=== PATIENT | male | born 1935 | race Caucasian/White ===

== ENCOUNTER 2021-06-14 07:26 | Inpatient (IN) | payer BC, MEDICAID, SELFPAY ==
[~2021-06-14] VITALS: Ht 167.6 cm; Wt 117.0 kg
[2021-06-14 07:26] VITALS: BP_SYST 130
[2021-06-14 08:50] LABS: BASOPHILS % (AUTO) 0.3 % (0.0-2.0); EOSINOPHILS % (AUTO) 0.2 % (0.0-4.0); HEMATOCRIT 34.6 % (36-54); HEMOGLOBIN 10.6 g/dL (14.0-18.0); LYMPHOCYTES # (AUTO) 0.1 K/uL (1.0-5.5); LYMPHOCYTES % (AUTO) 2.9 % (20.5-51.5); MEAN CORPUSCULAR HEMOGLOBIN 23 pg (27-31); MEAN CORPUSCULAR HGB CONC 31 % (32-36); MEAN CORPUSCULAR VOLUME 74 fL (79.0-98.0); MONOCYTES % (AUTO) 0.6 % (1.7-9.3); NEUTROPHILS # (AUTO) 4.1 K/uL (1.8-7.7); PLATELET COUNT (AUTO) 179 K/uL (130-430); RED BLOOD CELL COUNT(AUTO) 4.66 MIL/uL (4.2-6.2); RED CELL DISTRIBUTION WIDTH 20.3 % (9.0-15.0); WHITE BLOOD COUNT (AUTO) 4.2 K/uL (4.8-10.8)
[2021-06-14 09:44] LABS: ANION GAP 12 (5-15); CALCIUM 8.6 mg/dL (8.4-11.0); CHLORIDE 109 mmol/L (98-107); CREATININE 1.17 mg/dL (0.55-1.30); GLUCOSE 85 mg/dL (70-99); POTASSIUM 4.2 mmol/L (3.5-5.1); SODIUM SERUM 143 mmol/L (136-145); UREA NITROGEN, BLOOD 22 mg/dL (8-21)
[2021-06-14 09:49] LABS: ALANINE AMINOTRANSFERASE 23 U/L (12-78); ALBUMIN 3.3 g/dL (3.4-4.8); ASPARTATE AMINOTRANSFERASE 34 U/L (10-37)
[2021-06-14 09:50] LABS: C-REACTIVE PROTEIN QUANT < 0.2 mg/dL (0-0.5)
[2021-06-14] MEDS ORDERED: DILTIAZEM HCL 60 MG TABLET PO ONE (10:00)
[2021-06-14] MEDS ORDERED: DILTIAZEM HCL 25 MG/5 ML VIAL IVP ONE (10:00)
[2021-06-14 10:17] LABS: INR 1.3 (0.80-1.20); PROTHROMBIN TIME 13.8 SECS (9.5-12.5)
[2021-06-14] MEDS ORDERED: IOHEXOL 350 mgI/mL, 150 ML INFUS..BTL IV ONE (11:10)
[2021-06-14 14:41] VITALS: BP_SYST 120
[2021-06-14] MEDS ORDERED: IPRATROPIUM BROM 0.5 MG/2.5 ML VIAL.NEB (ATROVENT) INH PRN (16:00)
[2021-06-14] MEDS ORDERED: ALBUTEROL SULFATE 0.083% 2.5 MG/3 ML VIAL.NEB INH PRN (16:00)
[2021-06-14] MEDS ORDERED: COMMUNICATION ORDER XX ONE (16:30)
[2021-06-14 16:49] VITALS: BP_SYST 120
[2021-06-14 17:50] VITALS: BP_SYST 120
[2021-06-14] MEDS: ALBUTEROL SULFATE 0.083% 2.5 MG/3 ML VIAL.NEB INH SCH ×2 (19:28→23:11)
[2021-06-14] MEDS: IPRATROPIUM BROM 0.5 MG/2.5 ML VIAL.NEB (ATROVENT) INH SCH ×2 (19:29→23:11)
[2021-06-14] MEDS ORDERED: cefTRIAXone 1 GM IVPB PREMIX 50 ML IV SCH (20:00)
[2021-06-14 20:18] VITALS: BP_SYST 114
[2021-06-14] MEDS: ZOLPIDEM TARTRATE 5 MG TABLET PO SCH (21:48)
[2021-06-14] MEDS: CARVEDILOL 6.25 MG TABLET (COREG) PO SCH (21:48)
[2021-06-14] MEDS: APIXABAN 2.5 MG TABLET PO SCH (21:49)
[2021-06-14] MEDS: AZITHROMYCIN 500 MG in NS 250 ML IV SCH (21:50)
[2021-06-15] VITALS (7 sets, daily range): BP systolic 104–118
[2021-06-15] MEDS: ALBUTEROL SULFATE 0.083% 2.5 MG/3 ML VIAL.NEB INH SCH ×6 (03:00→23:00)
[2021-06-15] MEDS: IPRATROPIUM BROM 0.5 MG/2.5 ML VIAL.NEB (ATROVENT) INH SCH ×6 (03:00→23:00)
[2021-06-15 07:27] LABS: HEMATOCRIT 30.2 % (36-54); HEMOGLOBIN 9.2 g/dL (14.0-18.0); MEAN CORPUSCULAR HEMOGLOBIN 23 pg (27-31); MEAN CORPUSCULAR HGB CONC 31 % (32-36); MEAN CORPUSCULAR VOLUME 74 fL (79.0-98.0); PLATELET COUNT (AUTO) 142 K/uL (130-430); RED BLOOD CELL COUNT(AUTO) 4.09 MIL/uL (4.2-6.2); RED CELL DISTRIBUTION WIDTH 20.6 % (9.0-15.0); WHITE BLOOD COUNT (AUTO) 22.2 K/uL (4.8-10.8)
[2021-06-15] MEDS: CARVEDILOL 6.25 MG TABLET (COREG) PO SCH (08:04)
[2021-06-15] MEDS: LOSARTAN POTASSIUM 50 MG TABLET (COZAAR) PO SCH (08:05)
[2021-06-15] MEDS: APIXABAN 2.5 MG TABLET PO SCH ×2 (08:05→20:32)
[2021-06-15 08:20] LABS: ALANINE AMINOTRANSFERASE 26 U/L (12-78); ALBUMIN 2.8 g/dL (3.4-4.8); ANION GAP 10 (5-15); ASPARTATE AMINOTRANSFERASE 35 U/L (10-37); CALCIUM 9.5 mg/dL (8.4-11.0); CHLORIDE 106 mmol/L (98-107); CREATININE 1.12 mg/dL (0.55-1.30); GLUCOSE 82 mg/dL (70-99); POTASSIUM 3.6 mmol/L (3.5-5.1); SODIUM SERUM 139 mmol/L (136-145); THYROID STIMULATING HORMONE 1.73 uIu/mL (0.36-3.74); TOTAL BILIRUBIN 0.9 mg/dL (0.0-1.0); UREA NITROGEN, BLOOD 33 mg/dL (8-21)
[2021-06-15] MEDS: LEVOTHYROXINE SODIUM 0.075 MG TABLET PO SCH (10:57)
[2021-06-15] MEDS: ATORVASTATIN 10 MG TABLET PO SCH (10:57)
[2021-06-15] MEDS: CARVEDILOL 25 MG TABLET (COREG) PO SCH ×2 (10:58→20:31)
[2021-06-15] MEDS: TIMOLOL MALEATE 0.25% OPHTHALMIC DROPS 5 ML OP SCH ×2 (10:59→20:30)
[2021-06-15 11:23] LABS: CHOLESTEROL 81 mg/dL (<200); HDL CHOLESTEROL 45 mg/dL (>45); LDL CHOLESTEROL 34 mg/dL (<100); TRIGLYCERIDES 45 mg/dL (30-150)
[2021-06-15 14:45] LABS: BAND % (MANUAL) 19 % (0-6); BASOPHILS % (MANUAL) 0 % (0-2); EOSINOPHILS % (MANUAL) 0 % (0-7); LYMPHOCYTES % (MANUAL) 4 % (20-46); METAMYELOCYTES % 2 % (0-0); MONOCYTES % (MANUAL) 8 % (0-11)
[2021-06-15] MEDS ORDERED: SACU1TAB PO (17:26)
[2021-06-15] MEDS ORDERED: EPLE25TA10 PO (17:26)
[2021-06-15] MEDS: LATANOPROST 2.5 ML DROPS (XALATAN) OP SCH (17:35)
[2021-06-15] MEDS: AZITHROMYCIN 500 MG in NS 250 ML IV SCH (20:27)
[2021-06-15] MEDS: ZOLPIDEM TARTRATE 5 MG TABLET PO SCH (20:31)
[2021-06-15] MEDS ORDERED: PIPERACILLIN/TAZOBACTAM 3.375 GM/VIAL (ZOSYN) IV ONE (21:46)
[2021-06-15] MEDS: PIPERACILLIN/TAZO 3.375/DEX-IS 50 ML IV SCH (21:48)
[2021-06-16 00:30] VITALS: BP_SYST 100
[2021-06-16] MEDS: PIPERACILLIN/TAZO 3.375/DEX-IS 50 ML IV SCH ×3 (06:29→21:37)
[2021-06-16] MEDS: ALBUTEROL SULFATE 0.083% 2.5 MG/3 ML VIAL.NEB INH SCH ×5 (07:32→23:00)
[2021-06-16] MEDS: IPRATROPIUM BROM 0.5 MG/2.5 ML VIAL.NEB (ATROVENT) INH SCH ×5 (07:32→23:00)
[2021-06-16] MEDS: ATORVASTATIN 10 MG TABLET PO SCH (08:23)
[2021-06-16] MEDS: CARVEDILOL 25 MG TABLET (COREG) PO SCH ×2 (08:23→20:27)
[2021-06-16] MEDS: LEVOTHYROXINE SODIUM 0.075 MG TABLET PO SCH (08:23)
[2021-06-16] MEDS: TIMOLOL MALEATE 0.25% OPHTHALMIC DROPS 5 ML OP SCH ×2 (08:24→20:27)
[2021-06-16] MEDS: LOSARTAN POTASSIUM 50 MG TABLET (COZAAR) PO SCH (08:24)
[2021-06-16] MEDS: APIXABAN 2.5 MG TABLET PO SCH ×2 (08:29→20:28)
[2021-06-16 09:55] VITALS: BP_SYST 119
[2021-06-16 09:57] VITALS: BP_SYST 119
[2021-06-16 11:07] LABS: BASOPHILS % (AUTO) 0.2 % (0.0-2.0); EOSINOPHILS # (AUTO) 0.1 K/uL (0.0-0.4); EOSINOPHILS % (AUTO) 0.8 % (0.0-4.0); HEMATOCRIT 29.6 % (36-54); HEMOGLOBIN 9.2 g/dL (14.0-18.0); LYMPHOCYTES # (AUTO) 0.6 K/uL (1.0-5.5); MEAN CORPUSCULAR HEMOGLOBIN 23 pg (27-31); MEAN CORPUSCULAR HGB CONC 31 % (32-36); MEAN CORPUSCULAR VOLUME 73 fL (79.0-98.0); MONOCYTES # (AUTO) 1.8 K/uL (0.0-1.0); MONOCYTES % (AUTO) 11.2 % (1.7-9.3); NEUTROPHILS # (AUTO) 13.3 K/uL (1.8-7.7); NEUTROPHILS % (AUTO) 83.8 % (40.0-70.0); PLATELET COUNT (AUTO) 129 K/uL (130-430); RED BLOOD CELL COUNT(AUTO) 4.05 MIL/uL (4.2-6.2); RED CELL DISTRIBUTION WIDTH 20.9 % (9.0-15.0); WHITE BLOOD COUNT (AUTO) 15.9 K/uL (4.8-10.8)
[2021-06-16 12:00] VITALS: BP_SYST 120
[2021-06-16 12:19] LABS: ALANINE AMINOTRANSFERASE 22 U/L (12-78); ALBUMIN 2.6 g/dL (3.4-4.8); ANION GAP 9 (5-15); ASPARTATE AMINOTRANSFERASE 26 U/L (10-37); CHLORIDE 107 mmol/L (98-107); CREATININE 1.05 mg/dL (0.55-1.30); GLUCOSE 153 mg/dL (70-99); POTASSIUM 3.8 mmol/L (3.5-5.1); SODIUM SERUM 140 mmol/L (136-145); TOTAL BILIRUBIN 0.8 mg/dL (0.0-1.0); UREA NITROGEN, BLOOD 27 mg/dL (8-21)
[2021-06-16 16:14] VITALS: BP_SYST 115
[2021-06-16] MEDS: LATANOPROST 2.5 ML DROPS (XALATAN) OP SCH (18:12)
[2021-06-16] MEDS: AZITHROMYCIN 500 MG in NS 250 ML IV SCH (20:27)
[2021-06-16 20:59] VITALS: BP_SYST 118
[2021-06-16] MEDS: ZOLPIDEM TARTRATE 5 MG TABLET PO SCH (21:37)
[2021-06-17] VITALS (7 sets, daily range): BP systolic 119–152
[2021-06-17] MEDS: ALBUTEROL SULFATE 0.083% 2.5 MG/3 ML VIAL.NEB INH SCH ×5 (03:00→23:00)
[2021-06-17] MEDS: IPRATROPIUM BROM 0.5 MG/2.5 ML VIAL.NEB (ATROVENT) INH SCH ×5 (03:00→23:00)
[2021-06-17] MEDS: PIPERACILLIN/TAZO 3.375/DEX-IS 50 ML IV SCH ×3 (05:25→23:26)
[2021-06-17] MEDS ORDERED: LACTULOSE 20 GM/30 ML UDC PO ONE (06:15)
[2021-06-17 06:57] LABS: BASOPHILS # (AUTO) 0.1 K/uL (0.0-0.2); BASOPHILS % (AUTO) 0.7 % (0.0-2.0); EOSINOPHILS # (AUTO) 0.3 K/uL (0.0-0.4); EOSINOPHILS % (AUTO) 2.6 % (0.0-4.0); HEMATOCRIT 32.4 % (36-54); HEMOGLOBIN 10.1 g/dL (14.0-18.0); LYMPHOCYTES # (AUTO) 0.9 K/uL (1.0-5.5); LYMPHOCYTES % (AUTO) 9.4 % (20.5-51.5); MEAN CORPUSCULAR HEMOGLOBIN 23 pg (27-31); MEAN CORPUSCULAR HGB CONC 31 % (32-36); MEAN CORPUSCULAR VOLUME 74 fL (79.0-98.0); MONOCYTES # (AUTO) 1.1 K/uL (0.0-1.0); MONOCYTES % (AUTO) 11.4 % (1.7-9.3); NEUTROPHILS # (AUTO) 7.4 K/uL (1.8-7.7); NEUTROPHILS % (AUTO) 75.9 % (40.0-70.0); PLATELET COUNT (AUTO) 153 K/uL (130-430); RED CELL DISTRIBUTION WIDTH 20.6 % (9.0-15.0); WHITE BLOOD COUNT (AUTO) 9.8 K/uL (4.8-10.8)
[2021-06-17 08:18] LABS: ALANINE AMINOTRANSFERASE 17 U/L (12-78); ALBUMIN 2.7 g/dL (3.4-4.8); ANION GAP 5 (5-15); ASPARTATE AMINOTRANSFERASE 19 U/L (10-37); CALCIUM 9.5 mg/dL (8.4-11.0); CHLORIDE 109 mmol/L (98-107); CREATININE 0.89 mg/dL (0.55-1.30); GLUCOSE 98 mg/dL (70-99); POTASSIUM 3.9 mmol/L (3.5-5.1); SODIUM SERUM 141 mmol/L (136-145); TOTAL BILIRUBIN 0.6 mg/dL (0.0-1.0); UREA NITROGEN, BLOOD 21 mg/dL (8-21)
[2021-06-17] MEDS: APIXABAN 2.5 MG TABLET PO SCH ×2 (08:29→21:10)
[2021-06-17] MEDS: LEVOTHYROXINE SODIUM 0.075 MG TABLET PO SCH (08:29)
[2021-06-17] MEDS: LOSARTAN POTASSIUM 50 MG TABLET (COZAAR) PO SCH (08:30)
[2021-06-17] MEDS: ATORVASTATIN 10 MG TABLET PO SCH (08:30)
[2021-06-17] MEDS ORDERED: MILK OF MAGNESIA 30 ML UDC PO ONE (08:30)
[2021-06-17] MEDS: CARVEDILOL 25 MG TABLET (COREG) PO SCH ×2 (08:30→21:11)
[2021-06-17] MEDS: TIMOLOL MALEATE 0.25% OPHTHALMIC DROPS 5 ML OP SCH ×2 (08:31→21:06)
[2021-06-17] MEDS ORDERED: DOCUSATE SODIUM 100 MG CAPSULE PO SCH (09:00)
[2021-06-17] MEDS ORDERED: LACTULOSE 20 GM/30 ML UDC ONE (09:41)
[2021-06-17] MEDS ORDERED: DOCUSATE SODIUM 100 MG CAPSULE PO ONE (12:00)
[2021-06-17] MEDS ORDERED: TIMO5DRO16 EACH EYE (15:45)
[2021-06-17] MEDS ORDERED: XALEYE OP (15:45)
[2021-06-17] MEDS ORDERED: HYDC2.5% TP (15:45)
[2021-06-17] MEDS: LATANOPROST 2.5 ML DROPS (XALATAN) OP SCH (17:17)
[2021-06-17] MEDS: DOCUSATE SODIUM 100 MG CAPSULE PO SCH (21:00)
[2021-06-17] MEDS: AZITHROMYCIN 500 MG in NS 250 ML IV SCH (21:05)
[2021-06-17] MEDS: ZOLPIDEM TARTRATE 5 MG TABLET PO SCH (21:08)
[2021-06-18] MEDS ORDERED: guaiFENesin/DEXTROMETHORPHAN 10 ML UDC PO PRN (01:00)
[2021-06-18 02:06] VITALS: BP_SYST 118
[2021-06-18] MEDS: ALBUTEROL SULFATE 0.083% 2.5 MG/3 ML VIAL.NEB INH SCH ×5 (03:00→23:00)
[2021-06-18] MEDS: IPRATROPIUM BROM 0.5 MG/2.5 ML VIAL.NEB (ATROVENT) INH SCH ×5 (03:00→23:00)
[2021-06-18] MEDS: PIPERACILLIN/TAZO 3.375/DEX-IS 50 ML IV SCH ×3 (05:49→21:45)
[2021-06-18] MEDS: APIXABAN 2.5 MG TABLET PO SCH ×2 (09:00→22:55)
[2021-06-18] MEDS: ATORVASTATIN 10 MG TABLET PO SCH (10:15)
[2021-06-18] MEDS: DOCUSATE SODIUM 100 MG CAPSULE PO SCH ×2 (10:15→21:44)
[2021-06-18] MEDS: TIMOLOL MALEATE 0.25% OPHTHALMIC DROPS 5 ML OP SCH ×2 (10:15→21:44)
[2021-06-18] MEDS: CARVEDILOL 25 MG TABLET (COREG) PO SCH ×2 (10:15→22:54)
[2021-06-18] MEDS: LEVOTHYROXINE SODIUM 0.075 MG TABLET PO SCH (10:15)
[2021-06-18] MEDS: LOSARTAN POTASSIUM 50 MG TABLET (COZAAR) PO SCH (10:15)
[2021-06-18 11:29] VITALS: BP_SYST 122
[2021-06-18 16:06] VITALS: BP_SYST 126
[2021-06-18] MEDS: LATANOPROST 2.5 ML DROPS (XALATAN) OP SCH (18:00)
[2021-06-18] MEDS: ZOLPIDEM TARTRATE 5 MG TABLET PO SCH (21:44)
[2021-06-19] VITALS (7 sets, daily range): BP systolic 114–156
[2021-06-19] MEDS: IPRATROPIUM BROM 0.5 MG/2.5 ML VIAL.NEB (ATROVENT) INH SCH ×4 (03:00→15:00)
[2021-06-19] MEDS: ALBUTEROL SULFATE 0.083% 2.5 MG/3 ML VIAL.NEB INH SCH ×4 (03:00→15:00)
[2021-06-19] MEDS: PIPERACILLIN/TAZO 3.375/DEX-IS 50 ML IV SCH (05:32)
[2021-06-19] MEDS: DOCUSATE SODIUM 100 MG CAPSULE PO SCH ×2 (10:04→20:29)
[2021-06-19] MEDS: ATORVASTATIN 10 MG TABLET PO SCH (10:06)
[2021-06-19] MEDS: LEVOTHYROXINE SODIUM 0.075 MG TABLET PO SCH (10:06)
[2021-06-19] MEDS: CARVEDILOL 25 MG TABLET (COREG) PO SCH ×2 (10:06→20:26)
[2021-06-19] MEDS: APIXABAN 2.5 MG TABLET PO SCH ×2 (10:08→20:29)
[2021-06-19] MEDS: LOSARTAN POTASSIUM 50 MG TABLET (COZAAR) PO SCH (10:14)
[2021-06-19] MEDS ORDERED: cefTRIAXone 1 GM in D5W 50 ML IV SCH (11:00)
[2021-06-19] MEDS: TIMOLOL MALEATE 0.25% OPHTHALMIC DROPS 5 ML OP SCH ×2 (11:59→20:29)
[2021-06-19] MEDS ORDERED: CARV25TA55 PO (12:53)
[2021-06-19] MEDS ORDERED: LIP10 PO (12:53)
[2021-06-19] MEDS ORDERED: APIX5TAB PO (12:53)
[2021-06-19] MEDS ORDERED: AMOX-426 PO (12:57)
[2021-06-19 14:38] LABS: BILIRUBIN,URINE NEGATIVE (NEGATIVE); BLOOD, URINE 2+ (NEGATIVE); CLARITY/URINE CLEAR (CLEAR); COLOR,URINE YELLOW (YELLOW); GLUCOSE,URINE NEGATIVE (NEGATIVE); KETONES,URINE NEGATIVE (NEGATIVE); LEUKOCYTE ESTERASE ,URINE TRACE (NEGATIVE); NITRITE, URINE NEGATIVE (NEGATIVE); PROTEIN URINE NEGATIVE (NEGATIVE); UROBILINOGEN,URINE 0.2 (0.2-1.0)
[2021-06-19 16:16] LABS: BACTERIA,URINE RARE /HPF (None Seen)
[2021-06-19] MEDS: ZOLPIDEM TARTRATE 5 MG TABLET PO SCH (20:41)
== END 2021-06-19 21:00 | disposition home or self-care (01) | DRG 871 ==
LOC: SED 07:26 → STU 11:33
PROVIDERS: ADMIT Internal Medicine Hospice and Palliative Medicine; ATTEND Internal Medicine Hospice and Palliative Medicine
PROC: 5A09357 Assistance with Respiratory Ventilation, Less than 24 Consecutive Hours, Continuous Positive Airway Pressure (ICD-10-PCS; principal; 2021-06-15)
PROC: 5A09357 Assistance with Respiratory Ventilation, Less than 24 Consecutive Hours, Continuous Positive Airway Pressure (ICD-10-PCS; 2021-06-16)
PROC: 5A09357 Assistance with Respiratory Ventilation, Less than 24 Consecutive Hours, Continuous Positive Airway Pressure (ICD-10-PCS; 2021-06-17)
DX: A41.9 Sepsis, unspecified organism (principal); J18.9 Pneumonia, unspecified organism; J96.01 Acute respiratory failure with hypoxia; I42.0 Dilated cardiomyopathy; I48.20 Chronic atrial fibrillation, unspecified; J44.0 Chronic obstructive pulmonary disease with (acute) lower respiratory infection; N17.9 Acute kidney failure, unspecified; Z68.41 Body mass index [BMI] 40.0-44.9, adult; Z20.822 Contact with and (suspected) exposure to COVID-19; E78.5 Hyperlipidemia, unspecified; I50.9 Heart failure, unspecified; I11.0 Hypertensive heart disease with heart failure; F41.9 Anxiety disorder, unspecified; E66.9 Obesity, unspecified; K59.00 Constipation, unspecified; G47.33 Obstructive sleep apnea (adult) (pediatric); Z95.810 Presence of automatic (implantable) cardiac defibrillator; Z87.891 Personal history of nicotine dependence; Z79.01 Long term (current) use of anticoagulants
CPT/HCPCS: 36415; 71045; 71275; 76376; 80053; 80061; 81000; 83605; 83735; 83880; 84443; 84484; 85007; 85025; 85027; 85610-TC; 85730-TC; 86140; 86710; 86738; 87040-TC; 93005; 93306; 94640; 94660; 94760; 97112-GP; 97116-GP; 97530-GP; G0378; J0456; J0696; J2543; J3490; J7050; J7060; J7613; Q9967; U0003